=== PATIENT | female | born 1985 | race American Indian/Alaskan Native ===

== ENCOUNTER 2017-02-10 14:11 | Emergency (ER) | payer MEDICAID | END 2017-02-10 14:20 | LOC: DL.ED 14:11 | DX: Z53.21 Procedure and treatment not carried out due to patient leaving prior to being seen by health care provider (principal) ==

== ENCOUNTER 2017-02-11 17:35 | Emergency (ER) | payer MEDICAID ==
[2017-02-11] MEDS ORDERED: traMADol 50 MG Tab PO ONE (17:36)
[2017-02-11 17:46] VITALS: BP 122/62
[2017-02-11] MEDS ORDERED: Ketorolac 30 MG/ML SDV IM ONE (17:57)
--- NOTE | 2017-02-11 18:01 | EDM.PDOC ---
ED HPI GENERAL MEDICAL PROBLEM - General Chief Complaint: Lower Extremity Injury/Pain Stated Complaint: FOOT PAIN Time Seen by Provider: 02/11/17 17:58 Source of Information: Reports: Patient History Limitations: Reports: No Limitations - History of Present Illness INITIAL COMMENTS - FREE TEXT/NARRATIVE: 31 yo female presents with c/o left foot pain. States that she dropped a coffee cup on foot 4 days ago and swelling has increased. States she was able to remove glass from foot but pain has progressed. No other complaints. Onset Date: 02/08/17 Duration: Constant, Getting Worse Location: Reports: Lower Extremity, Left Quality: Reports: Ache, Throbbing Severity: Moderate Improves with: Reports: None Worsens with: Reports: Movement Associated Symptoms: Reports: No Other Symptoms Left Feet Pain Score (Numeric/FACES): 7 - Related Data Allergies Allergy/AdvReac Type Severity Reaction Status Date / Time hydrocodone Allergy Rash Verified 02/11/17 17:46 Home Meds: Home Meds Pantoprazole Sodium [Protonix] 20 mg PO DAILY 04/24/16 [History] Acetaminophen 500 mg PO Q4H 05/29/16 [History] Buprenorphine HCl [Buprenorphine] 8 mg SL BID 05/29/16 [History] Pnv No.122/Iron/Folic Acid [ Multi Tablet] 1 tab PO DAILY 05/29/16 [ History] Ibuprofen 600 mg PO ASDIRECTED PRN 02/11/17 [History] Past Medical History HEENT History: Reports: Impaired Vision Other HEENT History: wears glasses Cardiovascular History: Reports: None Respiratory History: Reports: Asthma Gastrointestinal History: Reports: None Genitourinary History: Reports: None Other Genitourinary History: BV 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: , 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 Other OB/BYN History: 34 weeks gestation Musculoskeletal History: Reports: None Neurological History: Reports: None Psychiatric History: Reports: None Endocrine/Metabolic History: Reports: None Hematologic History: Reports: None Immunologic History: Reports: None Oncologic (Cancer) History: Reports: None Dermatologic History: Reports: None - Infectious Disease History Infectious Disease History: Reports: Hepatitis C, MRSA - Past Surgical History Head Surgeries/Procedures: Reports: None Female Surgical History: Reports: Section Social & Family History - Family History Family Medical History: Noncontributory - Tobacco Use Smoking Status *Q: Current Every Day Smoker Years of Tobacco use: 10 Packs/Tins Daily: 0.5 Second Hand Smoke Exposure: No - Caffeine Use Caffeine Use: Reports: Coffee, Soda, Tea - Alcohol Use Days Per Week of Alcohol Use: 0 - Recreational Drug Use Recreational Drug Use: No Drug Use in Last 12 Months: Yes Recreational Drug Type: Reports: Amphetamines (Speed), Marijuana/Hashish, Oxycodone Recreational Drug Use Frequency: Not Used In Over 2 Months - Living Situation & Occupation Living situation: Reports: with Family Review of Systems - Review of Systems Review Of Systems: ROS reveals no pertinent complaints other than HPI. ED EXAM, GENERAL - Physical Exam Exam: See Below Exam Limited By: No Limitations General Appearance: Alert, WD/WN, No Apparent Distress Respiratory/Chest: No Respiratory Distress, Lungs Clear, Normal Breath Sounds, No Accessory Muscle Use, Chest Non-Tender Cardiovascular: Normal Peripheral Pulses, Regular Rate, Rhythm, No Edema, No Gallop, No JVD, No Murmur, No Rub Peripheral Pulses: 4+: Posterior Tibial (L), Posterior Tibial (R), Dorsalis Pedis (L), Dorsalis Pedis (R) Extremities: Normal Range of Motion, Non-Tender, Normal Capillary Refill, Pedal Edema, Increased Warmth Neurological: Alert, Oriented, Normal Cognition, Normal Gait, No Motor/Sensory Deficits Skin Exam: Warm, Dry, Ecchymosis (to left great toe), Erythema (to anterior left foot), Increased Warmth Course - Vital Signs Last Recorded V/S: Last Vital Signs Temp 96.6 F 02/11/17 17:42 Pulse 72 02/11/17 17:42 Resp 16 02/11/17 17:42 BP 122/62 02/11/17 17:42 Pulse Ox 100 02/11/17 17:42 - Orders/Labs/Meds Orders: Active Orders 24 hr Category Date Time Status Splinting [RC] ASDIRECTED Care 02/11/17 18:43 Ordered Meds: Medications Discontinued Medications Generic Name Dose Route Start Last Admin Trade Name Freq PRN Reason Stop Dose Admin Ketorolac Tromethamine 60 mg 02/11/17 17:57 02/11/17 18:10 Toradol IM 02/11/17 17:58 60 mg ONETIME ONE Administration - Radiology Interpretation Free Text/Narrative:: appears to be a chip fracture to cunieform. Departure - Departure Time of Disposition: 18:45 Disposition: Home, Self-Care 01 Condition: Good Clinical Impression: Fracture of foot - Discharge Information Instructions: Crutch Use, Metatarsal Fracture Forms: ED Department Discharge, ED Return to Work/School Form Additional Instructions: Do not put much weight on the left foot. Follow up in 5-7 days with your PCP. Return for any worsening symptoms. Take antibiotic until complete. Care Plan Goals: Ultram 50 #10 Keflex x 7 days - My Orders Last 24 Hours: My Active Orders 02/11/17 18:43 Splinting [RC] ASDIRECTED - Assessment/Plan Last 24 Hours: My Active Orders 02/11/17 18:43 Splinting [RC] ASDIRECTED
[2017-02-11] MEDS ORDERED: Cephalexin 500 MG Cap PO ONE (18:55)
[2017-02-11] MEDS ORDERED: traMADol 50 MG Tab ONE (18:59)
== END 2017-02-11 19:06 | disposition home or self-care (01) ==
LOC: DL.ED 17:35
DX: S92.902A Unspecified fracture of left foot, initial encounter for closed fracture (principal); S90.112A Contusion of left great toe without damage to nail, initial encounter; J45.909 Unspecified asthma, uncomplicated; F17.210 Nicotine dependence, cigarettes, uncomplicated; Z79.899 Other long term (current) drug therapy; Z88.5 Allergy status to narcotic agent; W20.8XXA Other cause of strike by thrown, projected or falling object, initial encounter
CPT/HCPCS: 73630; 96372; 99283; A9270; J1885

== ENCOUNTER 2020-04-28 20:53 | Emergency (ER) | payer MEDICAID ==
[2020-04-28 21:16] VITALS: BP 127/90; PULSE 103
--- NOTE | 2020-04-28 21:42 | EDM.PDOC ---
ED HPI GENERAL MEDICAL PROBLEM - General Chief Complaint: Lower Extremity Injury/Pain Stated Complaint: STEPPED ON NAIL, RIGHT FOOT Time Seen by Provider: 04/28/20 21:25 Source of Information: Reports: Patient History Limitations: Reports: No Limitations - History of Present Illness INITIAL COMMENTS - FREE TEXT/NARRATIVE: This 34 yo female patient reports to the ED due to stepping on a nail in her home last night at about 1900. The patient reports she has noticed pain to her foot today, but has not been staying off her foot. The patient did not get into the clinic or attempt to get into the clinic today. The patient reports she took ibuprofen at about 1500 for her pain which did help. The patient admits to using methamphetamine today. The patient fell asleep during the assessment requiring the patient to be shaken to awaken. Onset Date: 04/27/20 Onset Time: 19:00 Duration: Constant Location: Reports: Lower Extremity, Right Quality: Reports: Ache, Dull Severity: Moderate Improves with: Reports: None Worsens with: Reports: None Context: Reports: Other Associated Symptoms: Reports: No Other Symptoms Right Feet Pain Score (Numeric/FACES): 8 - Related Data Allergies Allergy/AdvReac Type Severity Reaction Status Date / Time hydrocodone Allergy Rash Verified 02/11/17 17:46 Home Meds: Home Meds Pantoprazole Sodium [Protonix] 20 mg PO DAILY 04/24/16 [History] Acetaminophen 500 mg PO Q4H 05/29/16 [History] Buprenorphine HCl [Buprenorphine] 8 mg SL BID 05/29/16 [History] No122/Iron/Folic Acid [ Multi Tablet] 1 tab PO DAILY 05/29/16 [History] Ibuprofen 600 mg PO ASDIRECTED PRN 02/11/17 [History] Past Medical History HEENT History: Reports: Impaired Vision Other HEENT History: wears glasses Cardiovascular History: Reports: None Respiratory History: Reports: Asthma Gastrointestinal History: Reports: None Genitourinary History: Reports: None Other Genitourinary History: BV 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: , 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 Musculoskeletal History: Reports: None Neurological History: Reports: None Psychiatric History: Reports: Addiction, Anxiety Endocrine/Metabolic History: Reports: None Hematologic History: Reports: None Immunologic History: Reports: None Oncologic (Cancer) History: Reports: None Dermatologic History: Reports: None - Infectious Disease History Infectious Disease History: Reports: Hepatitis C, MRSA - Past Surgical History Head Surgeries/Procedures: Reports: None Female Surgical History: Reports: Section Social & Family History - Family History Family Medical History: No Pertinent Family History - Tobacco Use Tobacco Use Status *Q: Current Every Day Tobacco User Years of Tobacco use: 10 Packs/Tins Daily: 1 - Caffeine Use Caffeine Use: Reports: Coffee - Recreational Drug Use Recreational Drug Use: Yes Recreational Drug Type: Reports: Methamphetamine - Living Situation & Occupation Living situation: Reports: with Family Review of Systems - Review of Systems Review Of Systems: Comprehensive ROS is negative, except as noted in HPI. ED EXAM, GENERAL - Physical Exam Exam: See Below Exam Limited By: No Limitations General Appearance: Alert, WD/WN, Anxious, Mild Distress Eye Exam: Bilateral Eye: EOMI, Normal Inspection, PERRL Ears: Normal External Exam, Normal Canal, Hearing Grossly Normal, Normal TMs Nose: Normal Inspection, Normal Mucosa, No Blood Throat/Mouth: Normal Inspection, Normal Lips, Normal Teeth, Normal Gums, Normal Oropharynx, Normal Voice, No Airway Compromise Head: Atraumatic, Normocephalic Neck: Normal Inspection, Supple, Non-Tender, Full Range of Motion Respiratory/Chest: No Respiratory Distress, Lungs Clear, Normal Breath Sounds, No Accessory Muscle Use, Chest Non-Tender Cardiovascular: Normal Peripheral Pulses, Regular Rate, Rhythm, No Edema, No Gallop, No JVD, No Murmur, No Rub GI/Abdominal: Normal Bowel Sounds, Soft, Non-Tender, No Organomegaly, No Distention, No Abnormal Bruit, No Mass (Female) Exam: Deferred Rectal (Female) Exam: Deferred Back Exam: Normal Inspection, Full Range of Motion, NT Extremities: Leg Pain (right foot tenderness) Neurological: Alert, Oriented, Other (The patient fell asleep several times during assessment) Psychiatric: Anxious Skin Exam: Wound/Incision (The patient has a small pinpoint area to the bottom of her right foot where she reports the nail went into her foot. ) Lymphatic: No Adenopathy Course - Vital Signs Last Recorded V/S: Last Vital Signs Temp 36.3 C 04/28/20 21:12 Pulse 103 H 04/28/20 21:12 Resp 20 04/28/20 21:12 BP 127/90 04/28/20 21:12 Pulse Ox 100 04/28/20 21:12 Departure - Departure Time of Disposition: 21:51 Disposition: Home, Self-Care 01 Condition: Fair Clinical Impression: Puncture wound of right foot Qualifiers: Encounter type: initial encounter Qualified Code(s): S91.331A - Puncture wound without foreign body, right foot, initial encounter - Discharge Information *PRESCRIPTION DRUG MONITORING PROGRAM REVIEWED*: Not Applicable *COPY OF PRESCRIPTION DRUG MONITORING REPORT IN PATIENT [place]ALINA: Not Applicable Instructions: Puncture Wound, [id number] Forms: ED Department Discharge Care Plan Goals: The patient was advised of the examination and x-ray results during the visit. The patient was discharged with a script for Keflex (500 mg) #20 to take 1 by mouth 2 times per day for 10 days. The patient was encouraged to rest, ice and elevate her foot. If the patient has any additional symptoms or concerns, the patient should either visit her primary care facility or return to the emergency department. Sepsis Event Note (ED) - Evaluation Sepsis Screening Result: No Definite Risk - Focused Exam Vital Signs: Vital Signs Temp Pulse Resp BP Pulse Ox 04/28/20 21:12 36.3 C 103 H 20 127/90 100
--- NOTE | 2020-04-28 21:47 | CR ---
PROCEDURE INFORMATION: Exam: XR Right Foot Exam date and time: 04/28/2020 9:26 PM Age: 34 years old Clinical indication: Other: Stepped on nail TECHNIQUE: Imaging protocol: XR Right foot. Views: 1 or 2 views. COMPARISON: No relevant prior studies available. FINDINGS: There is no fracture or dislocation. There is no radiopaque foreign body. IMPRESSION: Negative right foot.
== END 2020-04-28 22:07 | disposition home or self-care (01) ==
LOC: DL.ED 20:53
DX: O9A.213 Injury, poisoning and certain other consequences of external causes complicating pregnancy, third trimester (principal); S91.331A Puncture wound without foreign body, right foot, initial encounter; O99.513 Diseases of the respiratory system complicating pregnancy, third trimester; J45.909 Unspecified asthma, uncomplicated; F17.210 Nicotine dependence, cigarettes, uncomplicated; O99.333 Smoking (tobacco) complicating pregnancy, third trimester; Z88.5 Allergy status to narcotic agent; Z3A.34 34 weeks gestation of pregnancy; W45.0XXA Nail entering through skin, initial encounter; Y92.009 Unspecified place in unspecified non-institutional (private) residence as the place of occurrence of the external cause
CPT/HCPCS: 73620-RT; 99283; 99283-25

== ENCOUNTER 2021-12-11 19:46 | Emergency (ER) | payer MEDICAID ==
[2021-12-11] MEDS ORDERED: Sodium Chloride 0.9% 10 ML Syringe FLUSH PRN (20:09)
[2021-12-11 20:29] VITALS: BP 132/97; PULSE 99
== END 2021-12-11 21:07 | disposition left against medical advice (07) ==
LOC: DL.ED 19:46
DX: L03.115 Cellulitis of right lower limb (principal); Z88.5 Allergy status to narcotic agent; Z79.899 Other long term (current) drug therapy
CPT/HCPCS: 99283; J3490

== ENCOUNTER 2022-04-15 19:53 | Emergency (ER) | payer MEDICAID | END 2022-04-15 21:40 | disposition left against medical advice (07) | LOC: DL.ED 19:53 | DX: Z53.21 Procedure and treatment not carried out due to patient leaving prior to being seen by health care provider (principal) ==

== ENCOUNTER 2023-03-27 19:00 | Emergency (ER) | payer MEDICAID, OTHER ==
[2023-03-27 19:13] VITALS: BP 141/89; PULSE 94
[2023-03-27] MEDS: Ondansetron 4 MG/2 ML SDV IVPUSH ONE (19:39)
[2023-03-27] MEDS: fentaNYL 100 MCG/2 ML SDV IVPUSH ONE (19:40)
[2023-03-27] MEDS: Ibuprofen 600 MG Tab PO ONE (20:49)
[2023-03-27] MEDS: diphenhydrAMINE 25 MG Tab PO ONE (20:49)
== END 2023-03-27 20:50 ==
LOC: DL.ED 19:00
DX: S33.5XXA Sprain of ligaments of lumbar spine, initial encounter (principal); S50.11XA Contusion of right forearm, initial encounter; W06.XXXA Fall from bed, initial encounter
CPT/HCPCS: 72100; 73090-RT; 96374; 96375; 99283-25; 99284; A9270-GY; J2405; J3010

== ENCOUNTER 2023-03-28 21:31 | Emergency (ER) | payer MEDICAID, OTHER ==
[~2023-03-28 21:31] MED LIST: Lactated Ringers 1,000 ML IV ONE
[2023-03-28 21:38] LABS: HEMATOCRIT 37.1 % (37.0-47.0); MEAN CORPUSCULAR HEMOGLOBIN 28.5 pg (27.0-34.0); MEAN CORPUSCULAR HGB CONC 32.3 g/dL (33.0-35.0); MEAN CORPUSCULAR VOLUME 88.1 fL (80-100); PLATELET COUNT,PLT 251 10^3/uL (150-450); RED BLOOD CELL COUNT 4.21 10^6/uL (4.2-5.4)
[2023-03-28 21:45] LABS: BASE EXCESS ARTERIAL -10 mmol/L ((-2)-(+3)); BICARBONATE,ARTERIAL 15.1 mmol/L (22-26); O2 DELIVERY DEVICE VENTILATOR; O2 SATURATION ARTERIAL 100 % (95-100); PCO2 ARTERIAL 33 mmHg (35-45); PH,ARTERIAL 7.28 (7.35-7.45); PO2 ARTERIAL 337 mmHg (70-100)
[2023-03-28 21:46] LABS: ALLEN TEST positive
[2023-03-28 21:57] LABS: BASOPHILS PERCENT AUTO 0.1 % (0.0-1.0); LYMPHOCYTES PERCENT AUTO 13.7 % (20.5-50.1); MONOCYTES PERCENT AUTO 1.8 % (2-8); NEUTROPHILS PERCENT AUTO 83.4 % (42.2-75.2)
[2023-03-28 21:59] LABS: ALANINE AMINOTRANSFERASE,ALT 418 U/L (14-59); ALBUMIN 2.6 g/dL (3.4-5.0); ALKALINE PHOSPHATASE 117 U/L (46-116); ANION GAP 22.3 mEq/L (7-13); ASPARTATE AMNIOTRANSFERASE,AST 372 U/L (15-37); BILIRUBIN TOTAL 0.3 mg/dL (0.2-1.0); BLOOD UREA NITROGEN,BUN 16 mg/dL (7-18); BUN/CREATININE RATIO 12.8 (No establ ref range); CALCIUM 7.6 mg/dL (8.5-10.1); CARBON DIOXIDE,CO2 18 mmol/L (21-32); CHLORIDE,CL 108 mmol/L (98-107); CREATINE KINASE,CK 387 U/L (16-191); CREATININE 1.25 mg/dL (0.55-1.02); GLUCOSE RANDOM 229 mg/dL (70-99); POTASSIUM,K 4.3 mmol/L (3.5-5.1); PROTEIN TOTAL,TP 5.8 g/dL (6.4-8.2); SODIUM,NA 144 mmol/L (136-145)
[2023-03-28 22:00] LABS: A/G RATIO 0.81; ESTIMATED GFR 58 mL/min (>=60)
[2023-03-28 22:01] LABS: APPEARANCE,URINE CLEAR (CLEAR); BILIRUBIN,URINE NEGATIVE (NEGATIVE); COLOR,URINE YELLOW (YELLOW); GLUCOSE,URINE 250 (NEGATIVE); KETONES,URINE NEGATIVE (NEGATIVE); LEUKOCYTE ESTERASE,URINE NEGATIVE (NEGATIVE); NITRITE,URINE NEGATIVE (NEGATIVE); OCCULT BLOOD,URINE MODERATE (NEGATIVE); PROTEIN,URINE 100 (NEGATIVE); UROBILINOGEN,URINE 0.2 mg/dL (0.2-1.0)
[2023-03-28 22:04] LABS: LACTIC ACID 10.1 mmol/L (0.4-2.0)
[2023-03-28 22:05] LABS: HCG QUALITATIVE,SERUM NEGATIVE (NEGATIVE)
[2023-03-28 22:10] LABS: WBC,URINE 0-5 /HPF (0-5/HPF)
[2023-03-28 22:11] LABS: BACTERIA,URINE FEW /HPF (0-FEW/HPF); EPITHELIAL CELLS,URINE FEW /HPF (NOT SEEN); MUCUS,URINE OCCASIONAL /LPF (NOT SEEN)
[2023-03-28 22:15] LABS: BAND PERCENT MAN 12 %; LYMPHOCYTES PERCENT MAN 12 % (20-50); MONOCYTES PERCENT MAN 1 % (2-8); SEG NEUTROPHILS PERCENT MAN 75 % (42-75)
[2023-03-28] MEDS ORDERED: Lactated Ringers 1,000 ML IV ONE (22:15)
[2023-03-28 22:24] LABS: INR 1.2 (0.9-1.2); PROTHROMBIN TIME 11.7 SEC (9.0-12.0); PTT,PARTIAL THROMBOPLSTIN TIME 22.9 SEC (22.0-34.0)
[2023-03-28 22:46] LABS: O2 DELIVERY DEVICE VENTILATOR
[2023-03-28 22:47] LABS: BASE EXCESS ARTERIAL -5 mmol/L ((-2)-(+3)); BICARBONATE,ARTERIAL 19.8 mmol/L (22-26); O2 SATURATION ARTERIAL 95 % (95-100); PCO2 ARTERIAL 38 mmHg (35-45); PH,ARTERIAL 7.34 (7.35-7.45); PO2 ARTERIAL 79 mmHg (70-100)
[2023-03-28 22:48] LABS: ALLEN TEST POSITIVE
[2023-03-28] MEDS ORDERED: levETIRAcetam in NaCl (iso-os) 1,000 MG in Premix Bag 1 BAG IV ONE ×2 (23:03)
[2023-03-28] MEDS ORDERED: levETIRAcetam in NaCl (iso-os) 100 ML ONE (23:03)
== END 2023-03-28 23:09 ==
LOC: DL.ED 21:31
DX: T71.164A Asphyxiation due to hanging, undetermined, initial encounter (principal); R40.2431 Glasgow coma scale score 3-8, in the field [EMT or ambulance]; S50.11XA Contusion of right forearm, initial encounter; S10.91XA Abrasion of unspecified part of neck, initial encounter; J45.909 Unspecified asthma, uncomplicated; Z98.890 Other specified postprocedural states
CPT/HCPCS: 31500; 36415; 36600; 43752-52; 51702; 70450; 71045; 72125; 80053; 81001; 82550; 82803; 83605; 84703; 85025; 85610; 85730; 99284; 99285-25